=== PATIENT | female | born 1975 | race Caucasian/White ===

== ENCOUNTER 2017-10-04 06:37 | Inpatient (IN) | payer OTHER, MEDICAID, SELFPAY | END 2017-10-05 13:30 | disposition home or self-care (01) | DRG 470 | PROVIDERS: Admitting Provider Orthopaedic Surgery; Family Provider Physician Assistant; PCP Physician Assistant; Visit Provider Orthopaedic Surgery | DX: M87.852 Other osteonecrosis, left femur (principal); M06.89 Other specified rheumatoid arthritis, multiple sites; E78.5 Hyperlipidemia, unspecified; M81.0 Age-related osteoporosis without current pathological fracture; K21.9 Gastro-esophageal reflux disease without esophagitis; Z87.891 Personal history of nicotine dependence | CPT/HCPCS: 36415; 72170; 73502; 85027; 97116; 97161; 97530; C1776; C9290; J0171; J0690; J2405; J2704; J3370 ==

== ENCOUNTER 2018-07-18 05:39 | Inpatient (IN) | payer OTHER, MEDICAID, SELFPAY ==
[2018-07-13 15:06] VITALS: BMI 25.6
[2018-07-18] VITALS (16 sets, daily range): BP systolic 111–133; BP diastolic 73–97; PULSE 80–118; RESP 14–18; TEMP 36.1–37; O2SAT 96–103; BMI 25.6
[2018-07-18] MEDS: LACTATED RINGERS 1,000 ML 42 ML IV ×2 (06:58→09:37)
[2018-07-18] MEDS: VANCOMYCIN 1,000 MG/200 ML FROZ.PIGGY 200 MG IV (06:58)
--- NOTE | 2018-07-18 07:56 | PM.PREOP ---
Pre-operative Note Interval Note History & Physical reviewed/Exam performed by Physician: Yes Changes to H&P: No
--- NOTE | 2018-07-18 07:56 | PM.OP.1 ---
Operative Date/Time/Diagnoses Date of procedure: 07/18/18 Time of procedure: 07:57 Pre-op diagnosis: Rheumatoid arthritis, right hip arthritis Post-op diagnosis: same Procedure & Clinicians Procedure: Right total hip arthroplasty Same procedure as scheduled: Yes Indications: The patient has had progressively worsening right hip pain with radiographic changes consistent with arthritis. Non-operative management has failed and the patient has requested total hip replacement. The risks, benefits and alternatives to surgery were discussed with the patient prior to proceeding. Risks discussed included, but were not limited to, failure to relieve pain, leg length discrepancy, dislocation, stiffness, infection, nerve damage, deep venous thrombosis, pulmonary embolism, stroke, coma, heart attack, permanent paralysis and , as well as the potential need for eventual revision of the prosthetic. Surgeon: Ivy Fitch Research Study Assistant: Shea Ortiz Anesthesia Type: General and Spinal Operative Notes Findings: Severe right hip arthritis, soft bone, adequate stability Closure Type: primary Specimen(s): none sent Prosthetic devices, grafts, tissues, transplants, or devices: [employer] anthology size 6 standard offset, R3 size 50, -3 by 32, 15 screw Applied: drain(s) Estimated Blood Loss (mL): 350 Blood products transfused: none Procedure in detail: The patient was seen in the pre-operative area, where the patient identified the right hip as the operative site and this was marked with my initials. The patient received pre-operative antibiotics and was taken to the operating room and placed on the operative table in the left lateral decubitus position after satisfactory anesthesia. A telemetry tech out was performed. The right leg was prepared from the ankle to the iliac crest with ChloroPrep in the usual fashion and draped through sterile drapes. The hip was approached through an approximately 20 cm incision centered over the greater trochanter and curving gently posteriorly as it went proximally. This was carried sharply to the fascia deanna, which was divided and retracted with a self retaining retractor. The trochanteric bursa was excised with care being taken to avoid the sciatic nerve, which was identified and protected throughout the case. The short external rotators were incised and the capsulomuscular flap was raised and tagged for later repair. The hip was dislocated, and a femoral neck osteotomy performed approximately 15 mm above the lesser trochanter. Retractors were placed around the femur. The canal was opened with a box cutting osteotome, followed by a T handled reamer and a lateralizing reamer. The chili pepper broach was then used, followed by sequential broaching until there was good stability of the broach in the femur. The patient had an extremely tight hip and it was carefully mobilized in order to protect her soft bone. Retractors were placed to expose the acetabulum. The labrum and central soft tissues were removed. Reaming was performed initially going up in 2 mm increments, then 1 mm increments until good bite was obtained with an odd sized reamer. The cup 1 mm larger than the last reamer was then inserted using the appropriate anteversion guides. She had moderate obliquity of her acetabulum and soft bone and it was opted to use further stabilize the cup with a single 6.5 mm screw. A trial neutral liner was placed. The broach was placed in the canal. A trial head and neck were then placed. The components were in an acceptable position, but the hip was unreduceable. An intraoperative film was taken to check component position. It was felt that the acetabulum could be deepened a few mm. The acetabulum was repositioned and the femoral broach was countersunk by several mm. The hip relocated and checked for leg length and stability. An intraoperative film confirmed the component position and no evidence of fracture. The patient was stable in the position of sleep, of squatting, and could be put through a range of motion with 45 degrees internal rotation without dislocation. At 90 degrees flexion, internal rotation to 80 degrees was possible before dislocation. This was felt to be satisfactory and the appropriate components were opened, and the trials were removed. The acetabular liner was impacted into position. The final stem was then impacted into the prepared femoral canal. A brief Betadine soak was performed while trialing with head options. The hip was meticulously irrigated with normal saline. Finally the femoral head was impacted onto the stem. The acetabulum was cleared of all material and the hip relocated one final time. The capsulomuscular flap was then repaired to the greater trochanter though an awl hole using the tag sutures. The short external rotators were repaired with a nonabsorbable suture. A deep drain was placed and brought out anteriorly. The fascia deanna was closed with Vicryl. The subcutaneous layer was closed with barbed sutures and SteriStrips. An Aquacel Ag dressing was applied and the patient was taken to recovery having tolerated the procedure well. Complications: none Condition: stable Disposition: Acute Care Plan for aftercare: The patient will be maintained on a standard total hip replacement protocol with weight bearing as tolerated and posterior hip precautions. The patient will receive Aspirin and sequential compression devices for DVT prophylaxis. The patient will be discharged home when safe for the home environment.
[2018-07-18] MEDS: CEFAZOLIN 2 GM/100 ML FROZ.PIGGY IV ×2 (08:00→16:47)
--- NOTE | 2018-07-18 08:00 | DI.RAD.S_ITS ---
PROCEDURE: XR HIP W PEL IF DONE LT 2V INDICATIONS: total right hip post operative TECHNIQUE: AP pelvis with lateral view(s) of the right hip(s). COMPARISON: [facility], , [id number] W PEL IF PERFORMED, 10/04/2017, 10:33. FINDINGS: Bones: No fractures or dislocations. Expected postoperative alignment of right total hip arthroplasty. Pelvic ring appears intact. No suspicious bony lesions. Incidentally noted left hip arthroplasty Soft tissues: Overlying postsurgical soft tissue changes. IMPRESSION: Expected postoperative appearance Dictated by: Chace Medrano M.D. on 07/18/2018 at 13:34 Approved by: Chace Medrano M.D. on 07/18/2018 at 13:35
--- NOTE | 2018-07-18 08:00 | DI.RAD.S_ITS ---
PROCEDURE: XR PELVIS 1-2V INDICATIONS: INNER OP RIGHT HIP TECHNIQUE: A single image was obtained during an operative procedure and submitted for interpretation following the completion of the procedure. COMPARISON: [facility] , PELVIS 1 OR 2 VIEWS, 10/04/2017, 9:24. [facility] , [id number] W PEL IF PERFORMED, 10/04/2017, 10:33. FINDINGS: On this intraoperative study, there has been placement of a right hip arthroplasty. Please correlate with intraoperative findings. IMPRESSION: Normal intraoperative examination. Dictated by: Flaco Toth M.D. on 07/18/2018 at 10:20 Approved by: Flaco Toth M.D. on 07/18/2018 at 10:21
--- NOTE | 2018-07-18 08:36 | SUR.OPER ---
Left Lateral on padded OR bed. Gel axillary roll. Arms secured on padded armboard with pillow supporting top arm. Padded hip positioner braces x4 - anterior and posterior chest and pelvis. Additional gel pad used anterior pelvis. Gel pad under bottom leg from knee to foot and secured with tape over sheet.
[2018-07-18] MEDS: BUPIVACAINE 0.25% W/ EPI VIAL 60 ML INJ (08:43)
[2018-07-18] MEDS: BUPIVACAINE LIPOSOME 266 MG/20 ML VIAL INJ (08:44)
[2018-07-18] MEDS: SODIUM CHLORIDE IRRIG SOLUTION 250 ML, EPINEPHrine 1 MG IRR (08:45)
[2018-07-18] MEDS: POVIDONE-IODINE 15 ML, SODIUM CHLORIDE 0.9% 250 ML TOP (08:47)
[2018-07-18] MEDS: TRANEXAMIC ACID 1,000 MG VIAL 1000 MG INJ ×2 (08:48→10:42)
[2018-07-18] MEDS: fentaNYL 100 MCG/2 ML INJ 50 MCG IV ×2 (11:20→11:25)
[2018-07-18] MEDS: LORazepam 2 MG/ML SYRINGE 0.5 MG IV ×2 (11:27→11:45)
[2018-07-18] MEDS: HYDROMORPHONE 2 MG INJ 0.5 MG IV ×4 (11:30→11:50)
[2018-07-18] MEDS: LACTATED RINGERS 1,000 ML 125 ML IV (12:32)
[2018-07-18] MEDS: OXYCODONE IR 5 MG TABLET 10 MG PO ×2 (13:10→20:34)
[2018-07-18] MEDS: hydrOXYzine pamoate 25 MG CAPSULE PO ×2 (13:10→20:27)
--- NOTE | 2018-07-18 13:20 | PT.IIE ---
Current Diagnoses Unilateral primary osteoarthritis, right hip (07/18/18) Surgery Performed Operation Date: 07/18/18 07:45 Actual Procedures p Total Hip Arthroplasty(Right) - Ivy Fitch MD Surgical History (Last Updated 07/13/18 @ 15:11 by Kat Hooker, RN) History of total left hip arthroplasty (Acute 10/04/17) Hx of appendectomy (Acute) Hx of left knee surgery (Acute) Hx of tonsillectomy (Acute) S/P left unicompartmental knee replacement (Acute ~2016) Medical History (Last Updated 07/13/18 @ 15:11 by Kat Hooker RN) Former smoker (Acute) GERD (gastroesophageal reflux disease) (Acute) H/O: hysterectomy (Acute) Low back pain (Acute) Migraines (Acute) Rheumatoid arthritis (Acute) Physical Therapy Inpatient Evaluation/Re-Eval M1 PT/OT-IP Prior Functional Status Start: 07/18/18 15:36 Freq: NEEDED Status: Active Protocol: Document 07/18/18 13:20 RS (Rec: 07/18/18 16:19 RS [id number]) Medical Review Prior Functional Status Medical History Reviewed Yes Diet/Fluid Consistency Regular Communication no known deficits Mobility and Gait had L ERWIN a few months ago, had 2 falls in that time frame without injury, prefers to use crutches at home and a walker in the hospital Social History Household Members family Living Arrangements House Number of Floors (Floors) One Floor Number of Stairs To Enter/Railing? 1STE Home Equipment Crutches Employment Status [employer] Machine [employer] Employed Additional Social History Comment will be taking 2 weeks off from work M2 PT-IP Current Condition Start: 07/18/18 15:36 Freq: NEEDED Status: Active Protocol: Document 07/18/18 13:20 RS (Rec: 07/18/18 16:19 RS [id number]) Physical Therapy Current Condition Current Condition Evaluation Date 07/18/18 Treatment Diagnosis R posterior ERWIN Onset Date 07/18/18 Precautions Posterior Hip Precautions No Hip Flexion > 90 degrees No Hip Internal Rotation No Hip Adduction Weight Bearing Status Weight Bearing Status Weight Bear as Tolerated M3 PT-IP Subjective Start: 07/18/18 15:36 Freq: NEEDED Status: Active Protocol: Document 07/18/18 13:20 RS (Rec: 07/18/18 16:19 RS [id number]) Subjective Physical Therapy Visit Type Type Initial Evaluation Visit Start Time 12:30 Visit Stop Time 13:20 Total Visit Minutes 50 Physical Therapy Visit Comments Patient Comments Pt reports already feeling better than before surgery, really wants to get up and go to the bathroom. Patient Goals go home Therapy Pain Assessment Pain When Pain Assessed At Rest Pain Present Pain Present Denied Pain M4 PT-IP Mobility and Gait Start: 07/18/18 15:36 Freq: NEEDED Status: Active Protocol: Document 07/18/18 13:20 RS (Rec: 07/18/18 16:19 RS [id number]) PT-Bed Mobility Assessment Supine to Sit Supine to Sit Standby Assistance Sit to Supine Sit to Supine Standby Assistance Scooting Scooting to Edge of Bed Standby Assistance Scooting Up and Down in Bed Standby Assistance PT-Transfer Assessment Sit to and From Stand Sit to and from Stand Standby Assistance Equipment Transfer Assistive Device Gait Belt Front Wheeled Walker Transfers Transfer Destination Bed Bedside Commode Transfer Technique Stand Step Pivot Transfer Ability Level of Assist Standby Assistance Comments Mobility Comments Pt able to move without physical assist, steady on feet, moves legs well. Gait Assessment Gait Gait Assistance Required: Standby Assistance Distance (Feet) 30 Able to Maintain Weight Bearing Status Yes During Gait Assistive Devices Assistive Device Gait Belt Front Wheeled Walker Gait Deviations General Gait Pattern Antalgic Decreased Stride Length Step-to Gait Factors Limiting Gait Function Factors Limiting Gait Function Decreased Activity Tolerance Decreased Strength Pain Comments Gait Comments Pt tends to keep R heel up in the air throughout gait cycle, describes this being the walking pattern she was using prior to surgery. Even with verbal cues and demonstration pt unable to get heel down. In static stance pt is able to stand with both feet flat, so the motion is there. Pt also with a short L step length. Despite all this pt is very stable, no LOB. Stair Climbing Assessment Comments Stair Climbing Comments not yet tested PT-Balance Assessment Sitting Balance and Reactions Static Sitting Balance Ability Normal Dynamic Sitting Balance Ability Good Standing Balance and Reactions Static Standing Balance Ability Good Dynamic Standing Balance Ability Good Device Used FWW M5 PT-IP Objective Assessments Start: 07/18/18 15:36 Freq: NEEDED Status: Active Protocol: Document 07/18/18 13:20 RS (Rec: 07/18/18 16:19 RS [id number]) Orientation Orientation/Cognition Level of Alertness Alert Orientation Name Age Birthday Month Date Year Day of Week Place Situation Language Function Ability No Deficits Noted Safety Awareness Understands Safety Issues Memory Description No Deficits Noted Gross Range of Motion Upper Extremity ROM Assessment Within Functional Limits Lower Extremity ROM Assessment Right Impaired Strength Upper Extremity Strength Assessment Within Functional Limits Comments Strength Comments BLE not formally assessed, however, pt has good control of RLE, functionally demonstrating at least 3+/5 M6 PT-IP Treatment Start: 07/18/18 15:36 Freq: NEEDED Status: Active Protocol: Document 07/18/18 13:20 RS (Rec: 07/18/18 16:19 [id number]) Physical Therapy Treatment Exercises Exercises Ankle Pumps Gluteal Sets Quad Sets Heel Slides Supine Hip Abduction Education Education Provided Precautions Weight Bearing Status Post-Op Packet Safety M7 PT-IP Assessment and Plan Start: 07/18/18 15:36 Freq: NEEDED Status: Active Protocol: Document 07/18/18 13:20 RS (Rec: 07/18/18 16:19 [id number]) PT Summary Assessment and Plan Potential Rehabilitation Potential Excellent Status of Condition at Evaluation Stable Summary Impairments Pain Strength Gait Activity Tolerance Assessment Summary Pt is POD#0 R posterior ERWIN. Pt does demonstrate some pain and weakness with mobility, but this is expected after such a surgery. Pt is mobilizing well with FWW, only requiring SBA. However, pt also only tolerating approx 30ft of walking at this time which is far below pt's reported functional baseline. Pt will be safe to discharge tomorrow (or when medically ready) but will need to progress walking distance and trial stairs in AM first. Pt does have potential for functional improvement, recommend pt follow up with OPPT which the pt already has set up. Goals Bed Mobility Goal Independent Transfer Goal Independent Crutches Gait Goal Independent Crutches Gait Distance 100 Other Goals up/down 1 step with crutches mod ind Days to Meet Goals 1 Frequency of Treatment Frequency Of Treatment Once a Day Treatment Plan Physical Therapy Treatment Plan Gait Training Post Op Education Discharge Planning Other Recommendations and Next Treatment progress gait w/ crutches, Focus trial 1 step, likely can d/c home after the AM session Recommendations To Nursing Amount of Assist Needed Standby Assistance 1 Person Assist Discharge Recommendations PT Discharge Recommendations Home with Assistance Outpatient PT
[2018-07-18] MEDS: IBUPROFEN 600 MG TABLET PO ×2 (14:22→20:21)
[2018-07-18] MEDS: HYDROMORPHONE 2 MG INJ 1 MG IV (15:05)
--- NOTE | 2018-07-18 15:39 | PC.NURSE ---
Addendum entered by Sana Huang R.N. 07/18/18 16:10: Gave description of medication to pharmacy over phone in order to verify POM of Dexilant. Original Note: Day Shift-report rec'd from GERA Plascencia in PACU at 1157 on current pt status. Pt arrived to unit via bed at 1210, A&OX4, Rates 1/10 pain to right shoulder, ice pack on intermittent and 1-2/10 to right hip. Ice pack also on intermittently, Hemovac drain in place with compression. Right hip aquacel dressing CDI. Pt OOB with PT on first void, walked in parada outside room. Pt repositioned several times throughout shift. Pt states having trouble getting comfortable. Prn Oxycodone and vistaril given at 1310, pt states it takes her body longer around 1 hour to digest medications. Ibuprofen prn given at 1420, pt stated Tylenol does not work for her. Spoke with CEM Valdivia on unit around 1440, reported pt having 7/10 pain, very uncomfortable. One time Dilaudid IV order rec'd and okay to order POM of Dexilant. Dilaudid 1mg IV X1 given at 1505 with good effect. Pt refused to let her POM bottle of dexilant be verified with pharmacy, pt refused for the medication to leave her room, RN coordinator aware. Explained policy related to POM. Pt took POM of Dexilant at 1500 as prescribed on the bottle. 1 capsule of 60mg OD that she takes at lunch time. Pt has other medication bottles in her room and refused to have them sent to pharmacy, explained she cannot leave medication in her room, pt agreed that she will have her friend Maria L bring all the medications home when she comes this early evening.
[2018-07-18] MEDS: CYCLOBENZAPRINE 10 MG TABLET 30 MG PO (20:22)
[2018-07-18] MEDS: ASPIRIN EC 81 MG TABLET PO (20:23)
[2018-07-18] MEDS: DOCUSATE 100 MG CAPSULE PO (20:23)
[2018-07-19] MEDS: CEFAZOLIN 2 GM/100 ML FROZ.PIGGY IV
[2018-07-19] MEDS: OXYCODONE IR 5 MG TABLET 10 MG PO ×2 (00:01→03:26)
[2018-07-19 03:10] VITALS: BP 124/71; PULSE 114; RESP 18; TEMP 36.7; O2SAT 99
[2018-07-19] MEDS: IBUPROFEN 600 MG TABLET PO ×2 (03:25→08:20)
[2018-07-19 07:10] LABS: Hematocrit 30.2 % (36-46); Hemoglobin 10.1 g/dL (12.0-16.0)
[2018-07-19 07:44] VITALS: BP 135/80; PULSE 125; RESP 20; TEMP 36.7; O2SAT 99
--- NOTE | 2018-07-19 08:18 | PM.DS.1 ---
History of Present Illness Date Patient Seen: 07/19/18 Time Patient Seen: 08:18 Chief complaint: [id number] RIGHT TOTAL HIP ARTHROPLASTY Narrative: Hospital day 2, postop day 1 following right total hip arthroplasty by Dr. Fitch. Patient's repairing stable postoperatively. She states that she did not get much sleep last night. Patient is desiring to go home today. She is status post left total hip and has been through this before. Pain controlled well with oxycodone, ibuprofen and Vistaril. Patient was seen by Physical therapy yesterday and okay for home. Patient is voiding. She has been ambulating in room with walker. Still has Hemovac in place. She is scheduled to go to [facility] in [place]. Discharge Providers Date of admission: 07/18/18 05:39 Primary care physician: Malou Omalley PA-C Consults: 07/18/18 06:00 Consult to Anesthesiology Routine Comment: Consulting Provider: Anesthesiologist Reason for consultation: Regional block for post operative pain control 07/18/18 12:12 Consult to Discharge Planning Routine Comment: Consult to Physical Therapy Evaluate & Treat Comment: Physician Instructions: post op ERWIN protocol Consult to Respiratory Therapy Evaluate & Treat Comment: Physician Instructions: Evaluate and treat Discharge provider: Leeroy Mercado PA-C Discharge Date: 07/19/18 Summary Discharge Diagnosis: Status post right total hip arthroplasty Hospital Course: Patient brought to hospital on 07/18/2018 for above noted surgery. She remained stable postoperatively. Did well with physical therapy. Ready for discharge home on postop day 1. Status at Discharge Cognitive/behavioral status at discharge: Alert, oriented in no acute distress. Functional status at discharge: uses cane/walker Overall status at discharge: patient is progressing back to baseline Time Spent with Patient Less than 30 minutes Exam Vital Signs (past 8 hours): - 07/19/18 03:10 Temperature 98.0 F Pulse Rate 114 H Respiratory Rate 18 Blood Pressure 124/71 Pulse Oximetry 99 Oxygen Delivery Method Room Air Oxygen Flow Rate 0 Narrative Exam Narrative: Legs. Aquacel dressing to right hip is dry without drainage or inflammation. Hemovac in place. No calf pain or swelling. Pulses symmetrical. Objective Labs Result Diagrams: 07/19/18 05:28 Labs: Laboratory Results - last 24 hr 07/19/18 05:28 Hgb 10.1 L Hct 30.2 L Discharge Plan Discharge Plan Patient Disposition: Home Discharge comment: Discharged home today after cleared by physical therapy, Hemyari DASILVA. Discharge Med Rec/Prescriptions Prescriptions: New acetaminophen 325 mg Tablet 975 mg PO TID Qty: 30 RF: 0 aspirin 81 mg Tablet,Delayed Release (Dr/Ec) 81 mg PO BID Qty: 60 RF: 0 Continued gabapentin [Neurontin] 600 MG tablet 1,200 mg PO TID Qty: 0 RF: 0 ibuprofen 600 MG tablet 600 mg PO TID Qty: 0 RF: 0 cyclobenzaprine 10 MG tablet 3 tab PO HS Qty: 0 RF: 0 hydroxychloroquine 200 MG tablet 200 mg PO BIDCC Qty: 0 RF: 0 dexlansoprazole [Dexilant] 30 MG capsule,biphase delayed releas 30 mg PO QDAY Qty: 0 RF: 0 oxycodone 5 MG tablet 5 - 10 mg PO Q3HP PRN (Reason: Pain (Scale Score 1-3)) RF: 0 hydroxyzine pamoate 25 MG capsule 25 - 50 mg PO Q4HP PRN (Reason: muscle cramps) RF: 0 dexlansoprazole [Dexilant] 60 mg Capsule,Biphase Delayed Releas 60 mg PO DAILY RF: 0 Follow up/Referrals: Malou Omalley PA-C [Primary Care Provider] - Provider Discharge Instructions Diet: Diet as Tolerated Activity: Ambulate as tolerated. Use walker as needed. Continue hip precautions x6 weeks postop. Cold/Heat Therapy: Cold pack to hip as needed. Skin/Wound/Dressing Care Report to your healthcare provider any signs of infection, such as:: chills, fever, night sweats, increased pain, unusual drainage and unusual redness Dressing: Keep Aquacel dressing in place until postop visit. Visit Report/Discharge Packet Instructions: DI for Hip Replacement, How to Prevent Falls, DI for Postoperative Pain Visit Report Forms: Stroke Signs & Symptoms Discharge Data Primary Care Provider: Malou Omalley Attending Provider: Ivy Fitch Admit Date/Time: 07/18/18 05:39 Quality VTE Deep Vein Thrombosis/Pulmonary Embolism Present on Admission: No
[2018-07-19] MEDS: DOCUSATE 100 MG CAPSULE PO (08:19)
[2018-07-19] MEDS: ASPIRIN EC 81 MG TABLET PO (08:19)
[2018-07-19] MEDS: OXYCODONE IR 5 MG TABLET PO (08:20)
[2018-07-19] MEDS: GABAPENTIN 300 MG CAPSULE PO (08:21)
--- NOTE | 2018-07-19 09:33 | PT.IPTN ---
Current Diagnoses Unilateral primary osteoarthritis, right hip (07/18/18) Surgery Performed Operation Date: 07/18/18 07:45 Actual Procedures p Total Hip Arthroplasty(Right) - Ivy Fitch MD Physical Therapy Treatment Note M2 PT-IP Current Condition Start: 07/18/18 15:36 Freq: NEEDED Status: Active Protocol: Document 07/18/18 13:20 RS (Rec: 07/18/18 16:19 RS [id number]) Physical Therapy Current Condition Current Condition Evaluation Date 07/18/18 Treatment Diagnosis R posterior ERWIN Onset Date 07/18/18 Precautions Posterior Hip Precautions No Hip Flexion > 90 degrees No Hip Internal Rotation No Hip Adduction Weight Bearing Status Weight Bearing Status Weight Bear as Tolerated M3 PT-IP Subjective Start: 07/18/18 15:36 Freq: NEEDED Status: Active Protocol: Document 07/19/18 08:52 LJ (Rec: 07/19/18 09:33 LJ [id number]) Subjective Physical Therapy Visit Type Type Treatment Note Visit Start Time 08:52 Visit Stop Time 09:10 Total Visit Minutes 18 Physical Therapy Visit Comments Patient Comments Pt eager to go home. Ready to do stairs with crutches M4 PT-IP Mobility and Gait Start: 07/18/18 15:36 Freq: NEEDED Status: Active Protocol: Document 07/19/18 08:52 LJ (Rec: 07/19/18 09:33 LJ [id number]) PT-Bed Mobility Assessment Supine to Sit Supine to Sit Independent Scooting Scooting to Edge of Bed Independent PT-Transfer Assessment Sit to and From Stand Sit to and from Stand Independent Equipment Transfer Assistive Device Gait Belt Axillary Crutches Transfers Transfer Destination Bed Transfer Technique Stand Step Pivot Comments Mobility Comments Pt steady with crutches. Able to move independently with safety awareness Gait Assessment Gait Gait Assistance Required: Standby Assistance Distance (Feet) 30 Able to Maintain Weight Bearing Status Yes During Gait Assistive Devices Assistive Device Gait Belt Axillary Crutches Gait Deviations General Gait Pattern Antalgic Decreased Stride Length Factors Limiting Gait Function Factors Limiting Gait Function Decreased Activity Tolerance Decreased Strength Comments Gait Comments Pt has slow and steadygait with axillary crutches. Demonstrates safety awareness on stairs using the crutches properly and thinking thru the steps in stair climbing and descending. No LOB Stair Climbing Assessment Comments Stair Climbing Comments Pt did well on stairs going through the process step by step prior to attempting them. Safe on stairs. Performed up/ down x2. M5 PT-IP Objective Assessments Start: 07/18/18 15:36 Freq: NEEDED Status: Active Protocol: Document 07/18/18 13:20 RS (Rec: 07/18/18 16:19 RS [id number]) Orientation Orientation/Cognition Level of Alertness Alert Orientation Name Age Birthday Month Date Year Day of Week Place Situation Language Function Ability No Deficits Noted Safety Awareness Understands Safety Issues Memory Description No Deficits Noted Gross Range of Motion Upper Extremity ROM Assessment Within Functional Limits Lower Extremity ROM Assessment Right Impaired Strength Upper Extremity Strength Assessment Within Functional Limits Comments Strength Comments BLE not formally assessed, however, pt has good control of RLE, functionally demonstrating at least 3+/5 M6 PT-IP Treatment Start: 07/18/18 15:36 Freq: NEEDED Status: Active Protocol: Document 07/19/18 08:52 LJ (Rec: 07/19/18 09:33 LJ [id number]) Physical Therapy Treatment Education Education Provided Precautions Weight Bearing Status Post-Op Packet Safety M7 PT-IP Assessment and Plan Start: 07/18/18 15:36 Freq: NEEDED Status: Active Protocol: Document 07/19/18 08:52 LJ (Rec: 07/19/18 09:33 LJ [id number]) PT Summary Assessment and Plan Potential Rehabilitation Potential Excellent Status of Condition at Evaluation Stable Summary Impairments Pain Strength Gait Activity Tolerance Assessment Summary Pt has improved functional ambulation decrease in antalgic gait and a greater step through pattern using aux . crutches. Performs stairs safely and cautiously talking herself through the process as she goes. Safe to [place] home. Goals Bed Mobility Goal Independent Transfer Goal Independent Crutches Gait Goal Independent Crutches Gait Distance 100 Other Goals up/down 1 step with crutches mod ind Days to Meet Goals 1 Frequency of Treatment Frequency Of Treatment Once a Day Treatment Plan Physical Therapy Treatment Plan Gait Training Post Op Education Discharge Planning Other Recommendations and Next Treatment progress gait w/ crutches, Focus trial 1 step, likely can d/c home after the AM session Recommendations To Nursing Amount of Assist Needed 1 Person Assist Discharge Recommendations PT Discharge Recommendations Home with Assistance Outpatient PT
[2018-07-19 10:29] VITALS: O2SAT 97
--- NOTE | 2018-07-19 10:30 | PC.NURSE ---
Day shift pt is A&O able to make needs known. Aqucel dressing to Right hip is CDI, hemo vac removed prior to d/c tolerated without difficulty tip intact. +CMS, strong pulses, denies any numbness or tingling. IV removed. Denies any chest pain, SOB and h/a. Reviewed d/c instructions with pt at bedside, activity as tolerated, keep dressing in place till f/u appt. s/sx infection, reviewed pain medications with last dose. reviewed posterior hip precautions. left with all personal belonging, answered all questions and concerns. THis RN assisted pt out via w/c to friends car.
--- NOTE | 2018-07-19 15:09 | CM.DPNOTE ---
Attempted assessment this morning and RN Christa explained pt had already left. Pt had a prior hip surgery, was eager to leave and had no stated or indicated DC needs. Home w/no barriers. JW
== END 2018-07-19 10:00 | disposition home or self-care (01) | DRG 301 ==
PROVIDERS: Admitting Provider Orthopaedic Surgery; Family Provider Physician Assistant; PCP Physician Assistant; Visit Provider Orthopaedic Surgery
PROC: 0SR90JZ Replacement of Right Hip Joint with Synthetic Substitute, Open Approach (ICD-10-PCS; CPT 27130; principal; 2018-07-18 07:45)
DX: M16.11 Unilateral primary osteoarthritis, right hip (principal); Z96.642 Presence of left artificial hip joint; M06.89 Other specified rheumatoid arthritis, multiple sites; Z87.891 Personal history of nicotine dependence; K21.9 Gastro-esophageal reflux disease without esophagitis
CPT/HCPCS: 36415; 72170; 73502; 85014; 85018; 97116; 97161; 97530; C1776; C9290; J0171; J0690; J1100; J1170; J2060; J2250; J2405; J2704; J3010; J3370